=== PATIENT | male | born 1960 | race Caucasian/White ===

== ENCOUNTER → 2016-09-08 | Outpatient (CLI) | payer OTHER ==
[~2016-09-08] MED LIST: ADVIN25/60 INH; ALBU1AER9 INH; ASPI325T45 PO; ATV1 PO; CYCL10TA6 PO; GABA400C PO; HMLI SC; HYDR-4079 PO; INSDGI SC; LEVO50TA6 PO; LISI10TA PO; MORP15TA19 PO; NTRGSL/4 UT; OMEP40CA PO; TPRSR/50 PO; ZOLP10TA6 PO
--- NOTE | 2016-09-08 19:08 | DIAGNOSTIC IMAGING REPORT ---
CERVICAL SPINE 2 OR 3 VIEWS CLINICAL HISTORY: Postsurgical evaluation. COMPARISON STUDY: Cervical spine radiographs April 12, 2016. FINDINGS: Post surgical findings consistent with a posterior fusion extending from C2 through T1 are noted. 2 screws are noted at each level with the exception of the C6 level. Hardware is intact. There is straightening of the normal cervical lordosis. No fracture is identified. There is moderate multilevel disc space narrowing and osteophytosis. There is possible lucency surrounding the T1 screws. IMPRESSION: 1. No acute cervical spine fracture. 2. Status post posterior fusion from C2 through T1 as described above. Hardware intact. Possible lucency surrounding the T1 screws. Electronically signed by: Arvin Cross M.D. 09/08/2016 7:06 PM Dictated Date/Time: 09/08/2016 7:04 PM
== END | disposition home or self-care (01) ==
LOC: C.RAD 18:22
PROVIDERS: ATTEND Neurological Surgery
DX: Z48.89 Encounter for other specified surgical aftercare (principal)

== ENCOUNTER → 2017-01-05 | Outpatient (CLI) | payer OTHER ==
[~2017-01-05] MED LIST changes: +GADAVIST IV PRN
--- NOTE | 2017-01-05 15:05 | DIAGNOSTIC IMAGING REPORT ---
MRI OF THE BRAIN WITHOUT AND WITH IV CONTRAST CLINICAL HISTORY: R56.9 Seizure-like [id number] COMPARISON STUDY: 12/05/2014 TECHNIQUE: MRI of the brain was performed from the vertex to the skull base utilizing various T1 and T2 weighted sequences. Following the IV administration of 9 mL of Gadavist contrast, additional enhanced images were obtained. FINDINGS: Sagittal T1, axial diffusion, proton density and T2 weighted axial, coronal FLAIR, and pre and post axial T1-weighted images were acquired. These were supplemented with post gadolinium coronal T1 weighted images. No intra or extra-axial mass lesions are visualized. Axial diffusion-weighted images reveal no evidence of acute or subacute infarction. There is no evidence of ventricular dilatation. Proton density T2-weighted and FLAIR images reveal a few scattered foci of increased T2 signal within the white matter, likely on a small vessel basis. A few of the small foci are new when compared the prior 2014 study. There are no abnormal flow voids. There is no evidence of pathologic enhancement. IMPRESSION: No acute intracranial findings. No evidence of acute or subacute infarction. No evidence of intracranial mass. Electronically signed by: Calixto Bowser M.D. 01/05/2017 3:03 PM Dictated Date/Time: 01/05/2017 2:59 PM
[2017-01-05 16:04] LABS: C-REACTIVE PROTEIN 0.81 mg/dl (0-0.29)
== END | disposition home or self-care (01) ==
LOC: C.MRI 13:38
PROVIDERS: ATTEND Psychiatry & Neurology Neurology
DX: R56.9 Unspecified convulsions (principal); E11.9 Type 2 diabetes mellitus without complications

== ENCOUNTER → 2017-03-15 | Outpatient (CLI) | payer OTHER ==
[~2017-03-15] MED LIST changes: -GADAVIST IV PRN
--- NOTE | 2017-03-15 10:35 | DIAGNOSTIC IMAGING REPORT ---
CERVICAL SPINE 3 VIEWS CLINICAL HISTORY: Postoperative examination. FINDINGS: AP, lateral, and odontoid views of the cervical spine are compared to study dated 09/08/2016. The skeletal structures are osteopenic. There is no radiographic evidence of fracture. Again seen are postoperative changes from laminectomy and posterior fusion from C2 through T1. Interpedicular screws are present at all levels with the exception of C6. The orthopedic hardware appears intact. Lucency is again questioned around the T1 screws. Vertebral body height is maintained throughout the cervical spine. Minimal retrolisthesis is seen at C3-C4 and C4-C5. Alignment is otherwise preserved. There is straightening of the cervical lordosis. Anterior osteophytes are seen throughout. Moderate disc space narrowing is seen at C3-C4 and C4-C5. Advanced disc space narrowing is seen at C6-C7. Facet arthropathy is noted on the frontal view. The prevertebral soft tissues are within normal limits. Partially imaged apical lung parenchyma appears clear. Midline sternotomy wires are noted. Atherosclerotic calcification is present in the carotid bulb. IMPRESSION: 1. No acute bony abnormality is identified. 2. Again seen are postoperative changes from laminectomy and posterior fusion from C2 through T1. The orthopedic hardware is intact. 3. Lucency is again suggested around the T1 screws. Dictated: 03/15/2017 10:08 AM Transcribed: 03/15/2017 10:35 AM [facility] Electronically signed by: Bob Benz M.D. 03/15/2017 11:12 AM Dictated Date/Time: 03/15/2017 10:08 AM
== END | disposition home or self-care (01) ==
LOC: C.RAD 09:43
PROVIDERS: ATTEND Neurological Surgery
DX: Z48.89 Encounter for other specified surgical aftercare (principal)

== ENCOUNTER → 2017-04-12 | Outpatient (CLI) | payer OTHER ==
--- NOTE | 2017-04-15 12:04 | EEG Procedure Note ---
EEG Procedure Note Date of Service Apr 12, 2017. Start / End Times Start Time: 9:52am End Time: 10:12am Referring Physician Reid Ward History 57yr old male with seizure like activity. EEG for further evaluation of possible seizure etiology. Home Medication List Scheduled Aspirin (Aspirin), 325 MG PO QAM Fluticasone Prop/Salmeterol (Advair Diskus 250/50 60 Dose), 1 PUFF INH BID Gabapentin (Neurontin), 400 MG PO TID Hydrocodone/Acetaminophen 10MG/325MG ([place] 10MG/325MG), 1 TAB PO QID Insulin Glargine (Lantus), 60 UNITS SC AMPM Insulin Lispro (Humalog), UNITS SC AC Levothyroxine Sodium (Levothyroxine Sodium), 50 MCG PO QAM Lisinopril (Prinivil), 10 MG PO HS Metoprolol Succinate (Metoprolol Succinate ER), 50 MG PO QAM Morphine Cont Rel (Ms Contin), 15 MG PO Q8 Omeprazole (Prilosec), 40 MG PO QAM Scheduled PRN Albuterol Sulfate (Proair Hfa), 2 PUFFS INH UD PRN for Asthma Symptoms Cyclobenzaprine Hcl (Flexeril), 10 MG PO BID PRN for Muscle Spasm Lorazepam (Lorazepam), 1 MG PO TID PRN for Anxiety Nitroglycerin (Nitrostat), 0.4 MG UT UD PRN for Chest Pain Zolpidem Tartrate (Zolpidem Tartrate), 10 MG PO HS PRN for Sleep Description This is a 21 electrode EEG with a single channel dedicated to limited EKG. The electrodes were placed in accordance with the International 10-20 system. At the start of the recording the patient was in an awake state. The background was well organized and composed of symmetric mixed alpha and beta frequencies. There was a well formed symmetric moderate amplitude posterior dominant rhythm of 9-10Hz that was reactive to eye opening and closure. Hyperventilation was not done. Photic stimulation at various frequencies produced no abnormalities. There was no state changes or sleep transients. Interpretation This is a normal awake only routine EEG There was no electrographic seizures or epileptiform discharges. Clinical Correlation A normal EEG does not rule out epilepsy if there is a strong clinical suspicion.
== END | disposition home or self-care (01) ==
LOC: C.NEUR 09:38
PROVIDERS: ATTEND Psychiatry & Neurology Neurology
DX: R56.9 Unspecified convulsions (principal)

== ENCOUNTER → 2017-07-31 | Outpatient (CLI) | payer OTHER ==
--- NOTE | 2017-08-04 16:51 | EEG Procedure Note ---
EEG Procedure Note Date of Service Jul 31, 2017. Start / End Times Start Time: 07/31/2017 at 1:48 PM End Time: 08/01/2017 at 1:56 PM Referring Physician Reid Ward History This is a 57-year-old male with seizure-like activity and episodes of transient alteration of awareness. 24 hour EEG for spell capture and for further evaluation of possible seizure etiology. Home Medication List Scheduled Aspirin (Aspirin), 325 MG PO QAM Fluticasone Prop/Salmeterol (Advair Diskus 250/50 60 Dose), 1 PUFF INH BID Gabapentin (Neurontin), 400 MG PO TID Hydrocodone/Acetaminophen 10MG/325MG ([place] 10MG/325MG), 1 TAB PO QID Insulin Glargine (Lantus), 60 UNITS SC AMPM Insulin Lispro (Humalog), UNITS SC AC Levothyroxine Sodium (Levothyroxine Sodium), 50 MCG PO QAM Lisinopril (Prinivil), 10 MG PO HS Metoprolol Succinate (Metoprolol Succinate ER), 50 MG PO QAM Morphine Cont Rel (Ms Contin), 15 MG PO Q8 Omeprazole (Prilosec), 40 MG PO QAM Scheduled PRN Albuterol Sulfate (Proair Hfa), 2 PUFFS INH UD PRN for Asthma Symptoms Cyclobenzaprine Hcl (Flexeril), 10 MG PO BID PRN for Muscle Spasm Lorazepam (Lorazepam), 1 MG PO TID PRN for Anxiety Nitroglycerin (Nitrostat), 0.4 MG UT UD PRN for Chest Pain Zolpidem Tartrate (Zolpidem Tartrate), 10 MG PO HS PRN for Sleep Description This is a 21 electrode ambulatory EEG with a single channel dedicated to limited EKG. The electrodes were placed in accordance with the International 10- 20 system. There was O2 disconnection artifact after 8 PM on July 31 limiting interpretation in this area after that time. At the start of the recording the patient was in an awake state. Background was well organized and composed of symmetric mixed alpha and beta frequencies. There was a symmetric well-formed moderate amplitude 9-10 Hz posterior dominant rhythm that was reactive to eye opening and closure. Sleep was indicated by vertex waves and symmetric sleep spindles. Patient journal was returned and reviewed. No clinical events were reported. Interpretation This is a normal 24-hour ambulatory EEG. There was no electrographic seizures or epileptiform discharges. Clinical Correlation A normal EEG does not rule out epilepsy if there is a strong clinical suspicion or for spell types not captured. No clinical events were reported
== END | disposition home or self-care (01) ==
LOC: C.NEUR 13:28
PROVIDERS: ATTEND Psychiatry & Neurology Neurology
DX: R56.9 Unspecified convulsions (principal); R40.4 Transient alteration of awareness

== ENCOUNTER → 2017-12-22 | Outpatient (CLI) | payer OTHER ==
[~2017-12-22] VITALS: Ht 177.8 cm; Wt 89.2 kg
[~2017-12-22] MED LIST changes: +ASPECOTC PO; -ASPI325T45 PO
[2017-12-22 14:23] VITALS: BP 124/72; PULSE 67; Ht 177.8 cm; Wt 89.2 kg
== END | disposition home or self-care (01) ==
LOC: C.NEUR 14:10
PROVIDERS: ATTEND Internal Medicine Pulmonary Disease
DX: R56.9 Unspecified convulsions (principal); R40.4 Transient alteration of awareness; M54.2 Cervicalgia; G89.29 Other chronic pain